=== PATIENT | male | born 1955 | race Caucasian/White ===

== ENCOUNTER 2023-02-10 06:15 | Day surgery (SDC) | payer BC, SELFPAY ==
[2023-02-10] VITALS (17 sets, daily range): BP systolic 111–133; BP diastolic 69–95; PULSE 49–75; RESP 14–16; TEMP 36–36.5; O2SAT 92–97; BMI 28.8
[2023-02-10] MEDS: LACTATED RINGERS 1000 ML 1,000 ML 100 ML IV ×2 (06:45→09:58)
[2023-02-10] MEDS: SODIUM CHLORIDE 0.9 % (FLUSH) 10 ML SYRINGE IVF (06:45)
--- NOTE | 2023-02-10 07:19 | W.PM.H&PU ---
History & Physical Update History & Physical Update H&P Reviewed and patient assessed: No changes noted
[2023-02-10] MEDS: MIDAZOLAM HCL 1 MG/ML inj IVP (07:24)
[2023-02-10] MEDS: fentaNYL 100 MCG/2 ML inj IVP (07:24)
--- NOTE | 2023-02-10 07:27 | SUR.PREOP ---
TIME?OUT:?0723 PT/Alyssia Huber RN/Dr. Steve MDA?VERIFICATION?OF?SURGICAL?SITE right shoulder,?PROCEDURE,?AND?CONSENT OBTAINED?PRIOR?TO?INVASIVE?PROCEDURE.
[2023-02-10] MEDS: CEFAZOLIN 2 GM in 0.9 % SODIUM CHLORIDE Mini-bag 100 ML IVPB (07:52)
--- NOTE | 2023-02-10 08:17 | W.PM.NB ---
Nerve Block Nerve Block Time Seen by Provider: 07:26 Date Seen: 02/10/23 Type of block requested by surgeon for post-operative analgesia: supraclavicular Side: right Time out performed: Yes Verification of patient name: Yes Verification of date of : Yes Site marking: site marked Name of person performing procedure: Steve Continuous monitoring Was continuous monitoring of O2 sat, B/P, alarm security or surveillance monitor, recorded every 15 minutes?: Yes Procedure Checklist: sterile prep, needles and gloves Ultrasound guided. Images saved: Yes Medications given in 5ml increments after negative aspiration: Ropivicaine %: 0.5 mL: 20 Needle gauge: 22 Decadron (mg): 10 Precedex (mcg): 25 Patient tolerated procedure well: Yes Block Charges Block Charge (with Pro Fee): Brachial Plexus Use of Ultrasound Machine for Block: Yes- US Guidance/pain block
--- NOTE | 2023-02-10 08:17 | W.ANESCHARGE ---
Anesthesia Charges Start Date/Time Anesthesia Start Date: 02/10/23 Anesthesia Start Time: 07:48 Stop Date/Time Anesthesia Stop Date: 02/10/23 Anesthesia Stop Time: 10:01
[2023-02-10] MEDS: EPINEPHrine 1 MG in SODIUM CHLORIDE IRRIG SOLUTION 3,000 ML 9003 MG IRRIGATION ×5 (08:18→09:20)
--- NOTE | 2023-02-10 09:38 | PM.ORPRC ---
Procedure Note Date of procedure: 02/10/23 Procedure: PREOPERATIVE DIAGNOSES: 1. Right shoulder rotator cuff [id number] partial-thickness supraspinatus 2. Right shoulder AC degenerative joint disease, primary, moderate-severe 3. Right shoulder subacromial impingement syndrome. POSTOPERATIVE DIAGNOSES: 1. Right shoulder rotator cuff [id number] supraspinatus 2. Right shoulder AC degenerative joint disease, primary, moderate-severe 3. Right shoulder subacromial impingement syndrome. NAME OF OPERATION: 1. Right shoulder arthroscopic rotator cuff repair - full-thickness supraspinatus 2. Right shoulder arthroscopic distal clavicle excision 3. Right shoulder arthroscopic bursectomy, subacromial decompression/partial acromioplasty. SURGEON: John Allen MD SOLAR MECHANICAL ENGINEER: Tal Arias. Of note, a skilled medical assistant per diem was critical for this case to aide in patient positioning, suture manipulation, arm positioning, instrument positioning, and closure. ANESTHESIA: General plus preoperative supraclavicular block. EBL: 25 mL IMPLANTS: Arthrex 5.5 mm BioComposite SwiveLock suture anchor (x2); Arthrex 2.6 mm knotless FiberTak RC (x2) COMPLICATIONS: None evident INDICATIONS: The patient is a pleasant, 67-year-old male who has experienced right shoulder pain that has been increasing in recent time. Physical exam and imaging were consistent with a rotator cuff tear. Given their findings, as well as the weakness and pain, and inadequate response to nonoperative management, recommendation was made for surgery. FINDINGS: Exam under anesthesia revealed stable shoulder with excellent range of motion. The diagnostic arthroscopy revealed healthy chondral surfaces of the glenohumeral joint. The Subscapularis tendon was intact and with a healthy attachment. The long head of the biceps tendon was intact. The superior rotator cuff tendon was found to be torn in a full-thickness manner throughout a majority of the supraspinatus in a complex pattern and a slight/small reverse L-shaped component. The labrum was relatively healthy overall. No loose bodies were identified within the pouch or subscapularis recess. PROCEDURE: Following a thorough discussion of risks, benefits, and alternatives, consent was obtained and the right shoulder was marked. The patient was brought to the operating room and placed supine on the operating table. Induction of anesthesia was completed after preoperative supraclavicular block was administered in preop holding. Appropriate time out was performed identifying proper patient, site, and procedure. 2 g IV Ancef was administered within 1 hour of incision preoperatively. The right upper extremity was prepped and draped in the appropriate sterile fashion using ChloraPrep prep. This was after the patient was positioned in the beach chair with their head in neutral alignment and all bony prominences well padded. The shoulder was insufflated with 20mL of normal saline via an 18g spinal needle from a posterior approach. An 11 blade skin incision allowed a blunt trochar to be inserted and diagnostic arthroscopy to be performed with the findings as noted above. An anterior portal was established with an outside in technique. This allowed the probe to be inserted and confirm the diagnostic arthroscopic findings. The shaver was then inserted and allowed debridement of greater tuberosity humeral head in preparation for the rotator cuff repair Following this, the upper border subscapularis was probed and found to be stable. Thereafter, the subacromial space was entered. Here, a complete bursectomy and partial acromioplasty/subacromial decompression was performed with a combination of radiofrequency ablator, the shaver, and a 5.5 mm bur. Additionally, distal clavicle excision was performed with the bur. 8 mm of distal clavicle was resected based on the with of our bur. Further inspection of the supraspinatus and infraspinatus rotator cuff was performed. This identified the tear as noted above. The margins of the tear were debrided, and the greater tuberosity was debrided with a combination of the apollo cautery, shaver, and bur on reverse setting. After gentle decortication, a speed bridge configuration with a medial pattie was engaged. 2 medial anchors were placed and the sutures were passed with a fiber link. The knotless mechanism suture tails were then retrieved, passed, and cinched down for the medial pattie purpose. A tail from each of the medial row anchor FiberTapes were then brought to a lateral row anchor. The lateral row eyelet sutures were utilized for securing small dog ears. Excellent reapproximation of the tissue to the greater tuberosity was achieved with broad footprint compression. The rotator cuff showed excellent reapproximation of the greater tuberosity with good security upon probing. Prior to anchor refrigerated national truck driver removal, the eyelet sutures were tugged on for each anchor and found that the anchor had excellent stability within the bone. The shoulder was placed through range of motion and found to be stable. The rotator cuff was re-probed and found to be stable. Instruments were removed. Excess fluid was drained, closure performed with 4-0 Monocryl and Steri-Strips. Dressings were applied. Sling was applied. The patient was awoken from anesthesia and transferred to the PACU in stable condition. A skilled medical assistant per diem was critical for this case to aid in patient positioning, limb positioning, skill to manipulate arthroscopic instruments and camera, suture management, patient safety, and closure. PLAN: 1. Elbow, forearm, wrist and digit range of motion as tolerated. 2. Encouraged ice. 3. Oxycodone for pain as needed. 4. Sling at all times except for ROM and showering. 5. Follow up with PA visit in 1-2 weeks for wound check. Initiate physical therapy following that visit for passive range of motion. Initiate active assisted range of motion at 4-6 weeks. May do pendulums now.
--- NOTE | 2023-02-10 10:06 | W.ANESCHARGE ---
Anesthesia Charges Start Date/Time Anesthesia Start Date: 02/10/23 Anesthesia Start Time: 07:48 Stop Date/Time Anesthesia Stop Date: 02/10/23 Anesthesia Stop Time: 10:01
== END 2023-02-10 12:14 | disposition home or self-care (01) ==
PROVIDERS: PCP Internal Medicine; Visit Provider Orthopaedic Surgery Sports Medicine
PROC: (CPT 29805; principal; 2023-02-10 07:45)
DX: M75.101 Unspecified rotator cuff tear or rupture of right shoulder, not specified as traumatic (principal); M19.011 Primary osteoarthritis, right shoulder; M75.41 Impingement syndrome of right shoulder; G89.18 Other acute postprocedural pain
CPT/HCPCS: 29827; 29826; 29824; 01630; 64415; 76942; C1713; J0171; J0330; J0690; J1100; J2250; J2371; J2405; J2704; J2795; J3010; J3490; J7120; L3670

== ENCOUNTER 2024-11-01 06:10 | Day surgery (SDC) | payer MEDICARE, BC, SELFPAY ==
[2024-11-01] VITALS (19 sets, daily range): BP systolic 94–129; BP diastolic 58–89; PULSE 49–66; RESP 10–24; TEMP 36.2–37.1; O2SAT 93–99; BMI 28.6
[2024-11-01] MEDS: LACTATED RINGERS 1000 ML 1,000 ML 100 ML IV ×2 (06:15→10:08)
--- NOTE | 2024-11-01 06:52 | W.PM.H&PU ---
History & Physical Update History & Physical Update H&P Reviewed and patient assessed: No changes noted
[2024-11-01] MEDS: ACETAMINOPHEN 500 MG TABLET 1000 MG PO (06:59)
[2024-11-01] MEDS: OXYCODONE (CR) 10 MG TAB.ER.12H PO (06:59)
[2024-11-01] MEDS: SODIUM CHLORIDE 0.9 % (FLUSH) 10 ML SYRINGE IVF (07:00)
[2024-11-01] MEDS: MIDAZOLAM HCL 1 MG/ML inj IVP (07:10)
--- NOTE | 2024-11-01 07:11 | SUR.PREOP ---
TIME?OUT:?0709 PT/Alyssia Huber, RN/Ayan, MANAGER CIVIL?VERIFICATION?OF?SURGICAL?SITE left knee,?PROCEDURE,?AND?CONSENT OBTAINED?PRIOR?TO?INVASIVE?PROCEDURE.
--- NOTE | 2024-11-01 07:32 | P.NB_ITS ---
Nerve Block Nerve Block Time Seen by Provider: 07:10 Date Seen: 11/01/24 Type of block requested by surgeon for post-operative analgesia: geniculars Side: left Time out performed: Yes Verification of patient name: Yes Verification of date of : Yes Site marking: site marked Name of person performing procedure: Ayan Deleon Continuous monitoring Was continuous monitoring of O2 sat, B/P, cardiac catheterization technologist, recorded every 15 minutes?: Yes Procedure Checklist: sterile prep, needles and gloves Ultrasound guided. Images saved: No Medications given in 5ml increments after negative aspiration: Ropivicaine %: 0.5 mL: 12 Needle gauge: 25 Patient tolerated procedure well: Yes Additional comments: Injected in 4 mL increments after negative aspiration Block Charges Block Charge (with Pro Fee): Genicular Nerve Block Use of Ultrasound Machine for Block: No
--- NOTE | 2024-11-01 07:32 | P.NB_ITS ---
Nerve Block Nerve Block Time Seen by Provider: 07:05 Date Seen: 11/01/24 Type of block requested by surgeon for post-operative analgesia: adductor canal Side: left Time out performed: Yes Verification of patient name: Yes Verification of date of : Yes Site marking: site marked Name of person performing procedure: Ayan Deleon Continuous monitoring Was continuous monitoring of O2 sat, B/P, color television console monitor, recorded every 15 minutes?: Yes Procedure Checklist: sterile prep, needles and gloves Ultrasound guided. Images saved: Yes Medications given in 5ml increments after negative aspiration: Ropivicaine %: 0.5 mL: 30 Needle gauge: 20 Precedex (mcg): 25 Patient tolerated procedure well: Yes Additional comments: Injected in 5mL increments after negative aspiration Block Charges Block Charge (with Pro Fee): Femoral Nerve Use of Ultrasound Machine for Block: Yes- US Guidance/pain block
[2024-11-01] MEDS: TRANEXAMIC ACID 100 MG/ML INJ 1000 MG IV (07:38)
--- NOTE | 2024-11-01 08:44 | P.ORPRC_ITS ---
Procedure Note Date of procedure: 11/01/24 Procedure: PREOPERATIVE DIAGNOSIS: 1. Left knee osteoarthritis, primary, severe POSTOPERATIVE DIAGNOSIS: 1. Left knee osteoarthritis, primary, severe PROCEDURE: 1. Left total knee arthroplasty SURGEON: John Allen MD. CATH LAB RADIOLOGICAL TECHNOLOGIST: MARIO ALBERTO Marin - Of note, a skilled operations manager assistant was critical for this case to aid in patient positioning, tissue retraction, limb manipulation/positioning, and closure. ANESTHESIA: Spinal anesthetic EBL: 50ml IMPLANTS: DePuy J&J uncemented TKA - Attune PS femur size 7 Size 7 tibia 5mm poly spacer 38 mm Affixium patella TOURNIQUET: 45 min at 250 torr COMPLICATIONS: None evident INDICATIONS: The patient is a pleasant 68-year-old male who has experienced severe left knee pain and difficulty bearing weight. Workup included x-rays which revealed severe osteoarthrosis in the knee. Given the deformity, the dysfunction, and the pain, as well as the failure of nonoperative management, recommendation was made for surgery. FINDINGS: Full-thickness chondral loss lateral compartment. To lesser degree patellofemoral and medial compartment chondromalacia. Degenerative meniscus pathology lateral greater than medial. Moderate effusion upon entering the joint. Throughout the knee, the cancellous bone had a brownish coloring to it far more than typical. The bone was also rather dense cutting it. Particularly lateral compartment. There is a subtle fissure across the anterior aspect of the tibial plateau arcing in line with the anterior plateau. Hard to distinguish if this is truly a subtle fracture or patient's anatomy. DESCRIPTION OF PROCEDURE: Following a thorough discussion of risks, benefits, and alternatives consent was obtained and the left knee was marked. The patient was brought to the operating room and placed supine on the operating table. Induction of anesthesia was undertaken. 2 g IV Ancef and 1 g tranexamic acid was administered within 1 hr of incision preoperatively. Proper time-out was performed identifying proper patient, site, procedure. The operative extremity was prepped and draped in the appropriate sterile fashion using ChloraPrep after the patient was positioned supine with all bony prominences well padded. A longitudinal, anterior, midline skin incision was made starting approximately 3cm proximal to the superior pole of the patella and advanced distal to the tibial tubercle. A sub vastus approach was utilized . After mobilizing the patella, retropatellar fatpad was resected and the synovium in the suprapatellar pouch excised to visualize the anterior femoral cortex. Patellar prep showed initial measurement/thickness of 24 mm. It was resected back to approximately 14 mm. The patella prep was completed with drilling and a trial placed. Femoral preparation was performed via an intramedullary guide. Step drill allowed access into the femoral canal. The distal cutting guide was placed with 5? of valgus and 10 mm cut on the distal femur. Femur was sized using a anterior referencing guide in 3? of external rotation. This found have a best fit with the sizing noted above. The 4 in 1 cutting block was then placed, and the distal femur shaped accordingly. The box cut was then created and the trial implant inserted to confirm appropriate fit. We turned our attention to the proximal tibia. Extramedullary guide was utilized for cutting with the goal of being 90 degree cut from the mechanical axis of the tibia in the varus/valgus plane utilizing tibial crest as the primary alignment. Initially a 2 mm resection was performed from the medial t ibial plateau. An additional 2 mm of tibial resection was needed to achieve proper balance in both flexion & extension. Ultimately, balancing was achieved in both flexion and extension in both varus and valgus. The knee was able to achieve full extension comfortably. It was sized to be a best fit with as noted above. At this stage, trial implants were removed, the tibia and femoral and patellar components were opened and inserted. The real poly spacer was opened and inserted. A 3 min Betadine soak performed. Finally, a final irrigation round with normal saline was performed. Closure performed with 0 PDS and #0 Stratafix for the quad tendon/retinaculum. 2-0 Vicryl/Stratafix for the subcutaneous and 4-0 Monocryl for subcuticular closure. Dressings were applied and the patient was awoken from anesthesia after the tourniquet deflated and transferred the PACU in stable condition. A skilled operations manager assistant was critical for this case to aid in patient positioning, tissue retraction, bone exposure, limb manipulation/positioning, patient safety, and closure. PLAN: 1. Weight bear as tolerated operative extremity. 2. 23 hr perioperative antibiotics. 3. Ice. 4. PT/OT consults for ambulation assistance/mobility education. 5. Social work consult for discharge planning. 6. DVT prophylaxis with at SCDs, and aspirin twice daily.
--- NOTE | 2024-11-01 09:21 | P.ANES_ITS ---
Anesthesia Charges Start Date/Time Anesthesia Start Date: 11/01/24 Anesthesia Start Time: 07:21 Stop Date/Time Anesthesia Stop Date: 11/01/24 Anesthesia Stop Time: 09:20 Coding CPT Codes CPT Codes: ANESTH KNEE ARTHROPLASTY - 17705 ([id number]) P2 - PATIENT W/MILD SYST DISEASE, QK - TYPEWRITER REPAIRER 2-4 CNCRNT ANES PROC, QX - METAL MODEL BUILDER SVC W/ MD MED DIRECTION
--- NOTE | 2024-11-01 09:21 | W.ANESCHARGE ---
Anesthesia Charges Start Date/Time Anesthesia Start Date: 11/01/24 Anesthesia Start Time: 07:21 Stop Date/Time Anesthesia Stop Date: 11/01/24 Anesthesia Stop Time: 09:20 Coding CPT Codes CPT Codes: ANESTH KNEE ARTHROPLASTY - 06090 ([id number]) P2 - PATIENT W/MILD SYST DISEASE, QK - WAD BLANKING PRESS ADJUSTER 2-4 CNCRNT ANES PROC, QX - AIRCRAFT STRUCTURAL DESIGN ENGINEER SVC W/ MD MED DIRECTION
--- NOTE | 2024-11-01 09:28 | CRLHL7_ITS ---
For Patients: As a result of the Cures Act, medical imaging exams and procedure reports are released immediately into your electronic medical record. You may view this report before your referring provider. If you have questions, please contact your health care provider. INDICATION: Follow-up a left knee arthroplasty. TECHNIQUE: Two portable postoperative images of the left knee. COMPARISON: Pre-surgical images October 10, 2024. FINDINGS: New left knee arthroplasty with patellar resurfacing. The components are adequately aligned and well seated. Air within the joint space and soft tissues related to the surgery. IMPRESSION: New left total knee arthroplasty. The components are adequately aligned and well seated. Dictated by El Mayer MD @ 11/01/2024 9:52:05 AM (Electronically Signed)
--- NOTE | 2024-11-01 09:53 | SUR.PHASEI ---
patient met discharge criteria per anesthesia
== END 2024-11-01 13:40 | disposition home or self-care (01) ==
LOC: OR 06:11
PROVIDERS: PCP Internal Medicine; Visit Provider Orthopaedic Surgery Sports Medicine
PROC: (CPT 27447; principal; 2024-11-01 07:30)
DX: M17.12 Unilateral primary osteoarthritis, left knee (principal); G89.18 Other acute postprocedural pain
CPT/HCPCS: 27447; 01402; 64447; 64454; 73560; 76942; 97110; 97116; 97161; A9270; C1776; J0690; J1100; J2250; J2371; J2405; J2704; J2795; J3010; J7120

== ENCOUNTER 2024-11-10 09:27 | Outpatient (CLI) | payer MEDICARE, BC, SELFPAY ==
--- NOTE | 2024-11-10 09:15 | CRLHL7_ITS ---
For Patients: As a result of the Century Cures Act, medical imaging exams and procedure reports are released immediately into your electronic medical record. You may view this report before your referring provider. If you have questions, please contact your health care provider. Indication: Pain and swelling status post left TKA 9 days prior Technique: Grayscale, grayscale compression, color Doppler, spectral Doppler and augmentation technique was utilized for evaluating the left lower extremity venous system. The right common femoral vein was also studied Comparison: None Findings: The right common femoral vein is patent. The following structures were studied on the left: Common femoral vein, greater saphenous vein, femoral vein, popliteal vein, peroneal vein and posterior tibial vein. There is thrombosis of both left peroneal veins. The remainder of the left lower extremity venous system is normal in appearance. Discussed directly with Tal Weaver at 10:37 a.m. on 11/10/2020 Impression: Deep venous thrombosis involving the left lower extremity peroneal veins. Dictated by Fredy Marin MD @ 11/10/2024 10:39:25 AM (Electronically Signed)
== END 2024-11-10 09:28 | disposition home or self-care (01) ==
LOC: US 09:29
PROVIDERS: PCP Internal Medicine; Visit Provider Physician Assistant Surgical
DX: M79.662 Pain in left lower leg (principal); I82.452 Acute embolism and thrombosis of left peroneal vein
CPT/HCPCS: 93971

== ENCOUNTER 2024-11-10 10:29 | Emergency (ER) | payer MEDICARE, BC, SELFPAY ==
--- OUTSIDE RECORDS SUMMARY | 2024-11-10 10:32 | XMS_ITS | Clinical Summary ---
Author Organization [employer] [facility] Address [address] [place] [id number] Care Team Providers Care Hi Lift Operator Name Role Phone Slime Oh MD Primary Care Provider [phone] John Allen MD Unavailable [phone] Allergies No known active allergies Medications OCUVITE TAB Take 1 tablet daily 0 7 Active FISH OIL 1,200 MG-144 MG-216 MG CAP Take 1 tablet daily 0 7 Active flunisolide, 25 mcg per actuation, nasal (NASALIDE) 25 mcg (0.025 %) nasal sprayIndications :Routine general medical examination at a health care facility,Nasal congestion Inhale 2 Sprays to both nostrils 2 times daily. 25 mL 2 Active albuterol HFA (PRO-AIR; VENTOLIN; PROVENTIL) 90 mcg/actuation inhalerIndicatio ns:Mild persistent asthma without complication (HC) Inhale 2 Puffs by mouth every 6 hours if needed for Shortness Of Breath. 1 Each 5 4 Active fluticasone propion-salmeter oL (Advair Diskus) 250-50 mcg/Dose diskus inhalerIndicatio ns:Mild persistent asthma without complication (HC) Inhale 1 Puff by mouth two times daily. 60 Each 11 4 Active montelukast (SINGULAIR) 10 mg tabletIndication s:Mild persistent asthma without complication (HC) TAKE ONE TABLET BY MOUTH AT BEDTIME 90 Tablet 3 5 Active MAGNESIUM ORAL Take by mouth. 025 Discontin ued(*Paulina ent states no longer taking) methylPREDNISolo ne (Medrol, [place],) 4 mg tabletIndication s:Chronic right-sided low back pain with right-sided sciatica Take by mouth as instructed per packaging. 21 Tablet 4 025 Discontin ued(*Paulina ent states no longer taking) Active Problems Problem Noted Date Diagnosed Date Rosacea 05/06/2014 Mild persistent asthma 12/01/2011 Lichen planus 08/19/2010 Allergic rhinitis 08/19/2010 Sensorineural hearing loss, bilateral 04/28/2007 Encounters Date Type Department Care Team Description 11/01/2024 Orders Only [facility] Scanner 1 scan: (1-Ord) [facility], LEFT KNEE 2V, 11/01/2024 10/31/2024 [address] [address] Slime Oh MD 1 scan: (1-Ord) 10/30/2024 10/30/2024 12:55 PM CDT Office Visit [address] [place] [address] Slime Oh MD Pre-Op Exam (DOS: 11/01/2024) 10/30/2024 Travel 08/29/2024 10:05 AM CDT Ancillary Procedure [facility] [place] [address] [place] [id number] 08/29/2024 9:45 AM CDT Office Visit [facility] [address] [place] [address] Casey Kent DPM Consult (Right foot pain) 08/29/2024 Travel from Last 3 Months Immunizations Immunization Administration Dates Next Due COVID-19 VACCINE SPIKEVAX (M ODERNA 50MCG/0.5ML) 12YO+ PFS 03/09/2023 COVID-19 vaccine ([employer] NTech 30mcg/0.3mL) 12YO+ BHARATI-SUCROSE PF MDV 08/29/2021 DT (Age < 7 years) 04/05/1983 Hepatitis A (Adult) 03/09/2023,11/11/2012 Hepatitis B (Adult) 04/05/1983 Inactivated Polio Vaccine 03/09/2023 Influenza, IIV4 02/22/2023,02/20/2020,01/03/2015 MMR 03/18/1989 Pneumococcal Conj 20-valent (Prevnar 20) 023 Pneumococcal conj 13-Valent (Prevnar 13) 017 Tdap 01/17/2018,11/15/2007 Typhoid (injectable) 03/09/2023,11/11/2012 Zoster (Shingrix-RZV, recombinant) 12/05/2021, Family History Medical History Relation Name Comments Other Brother 2 Dandy Cancer Brother 3 Carlo T-cell Lymphoma Asthma Brother 4 Bees Heart failure Brother 5 El sudden cardiac Polycystic kidney disease Brother 5 El Sudden Brother 5 El Heart Disease Father Cancer-breast Maternal Aunt Other Maternal Grandfather mag deg Other Maternal Grandmother mac deg Relation Name Status Comments Brother 1 Andres Alive Brother 2 Dandy Alive Brother 3 Carlo Alive Brother 4 Alive Brother 5 El Daughter 1 Alive Daughter 2 Alive Father Maternal Aunt Maternal Grandfather Maternal Grandmother Mother Paternal Grandfather Paternal Grandmother Sister Son Alive Social History Tobacco Use Types Packs/Day Years Used Date Smoking Tobacco: Never Passive Smoke Exposure: Never Smokeless Tobacco: Never Tobacco Cessation:Counseling Given: Yes Alcohol Use Standard Drinks/Week Comments Yes 0 (1 standard drink = 0.6 oz pur e alcohol) occasional PHQ-2 Answer Date Recorded PHQ-2 TOTAL SCORE 0 10/13/2023 Social Connections Answer Date Recorded Do you often feel lonely or isolated from those around you? 0 10/13/2023 Financial Resource Strain Answer Date R ecorded Difficulty of Paying Living Expenses 3 10/13/2023 Difficulty of Paying Living Expenses Not on file 10/13/2023 Food Insecurity Answer Date Recorded Do you worry your food will run out before you are able to buy more? 1 10/13/2023 Transportation Needs Answer Date Record ed Does lack of transportation keep you from medica l appointments? 1 10/13/2023 Does lack of transportation keep you from work, meetings or getting things that you need? 1 10/13/2023 Housing Stability Answer Date Recorded What is your housing situation today? 1 10/13/2023 Utilities Answer Date Recorded Do you have trouble paying f or utilities (for example, heat, electricity, water, phone)? 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 Gender Identity Not on file Sexual Orientation Not on file Occupation Industry Job Start Date Job End Date Not on file Not on file Not on file Not on file Obstetrics History Last Filed Vital Signs Vital Sign Reading Time Taken Comments Blood Pressure 114/76 10/30/2024 12:47 PM CDT Pulse 52 10/30/2024 12:47 PM CDT Temperature 36.6 C (97.9 F) 02/01/2023 3:28 PM CDT Respiratory Rate 16 2017 3:39 PM CDT Oxygen Saturation 96% 08/29/2024 9:42 AM CDT Inhaled Oxygen Concentration - - Weight 85.5 kg (188 lb 6.4 oz) 10/30/2024 12:47 PM CDT Height 174 cm (5' 8.5) 10/30/2024 12:47 PM CDT Body Mass Index 28.23 10/30/2024 12:47 PM CDT Plan of Treatment Health Maintenance Due Date Last Done Comments Hepatitis B series for 19+ ( 2 of 3 - 19+ 3-dose series) 05/03/1983 04/05/1983 RSV vaccine for adults or (1 - Risk 60-74 years 1-dose series) 2017 COVID-19 vaccine series (2023- season) 2023 03/09/2023, 08/29/2021, 02/06/2021, Additional history exists Depression screening for age 12+ 10/12/2024 10/13/2023, 03/04/2020, 03/04/2020, Additional history exists Medicare Wellness for age 65+ 10/13/2024 10/13/2023 Influenza Vaccine (#1) 2024 , 02/20/2020, 01/03/2015 BMI (ht and wt on same day) for age 18+ 10/30/2025 10/30/2024, 10/13/2023, 02/01/2023, Additional history exists Tetanus booster 01/18/2028 01/17/2018, 11/15/2007 Lipids for age 45-75 02/02/2028 02/01/2023, 08/29/2021, 2017, Additional history exists Colonoscopy through age 75 11/24/202811/24, 08/02/2014, 08/02/2014, Additional history exists Hepatitis C screening for ag e 18-79 Completed 04/27/2014 Zoster (shingles) series for age 50+ Completed 12/05/2021, 01/17/2018 Pneumococcal series for age 50+ Completed , 10/12/2016 Procedures Procedure Name Priority Date/Time Associated Diagnosis Comments SCAN-RADIOLOGY REPORT 11/01/2024 12:00 AM CDT CBC W PLT NO DIFF Routine 10/30/2024 2:2 3 PM CDT Mild persistent asthma without complication (HC) BASIC METABOLIC PANEL Routine 10/30/2024 2:23 PM CDT Mild persistent asthma without complication (HC) EKG 12 LEAD Routine 10/30/2024 12:00 AM CDT Mild persistent asthma without complication (HC) XR FOOT 3 VIEWS RIGHT Routine 08/29/2024 10:05 AM CDT Capsulitis of foot, right SCAN-COLONOSCOPY 11/25/2023 1:00 PM CDT LIPID PANEL W REFLEX MEASURED LDL Add On 02/01/2023 4:19 PM CDT Lipid screening ANTI HCV Routine 04/27/2014 10:38 AM MERRY GO ROUND ATTENDANT Need for hepatitis C screening test from Last 3 Months or Most Recently Relevant to Health Maintenance Results * SCAN-RADIOLOGY REPORT (11/01/2024 12:00 AM CDT) Anatomical Region Laterality Modality Other us Scanner OTHER Final Result * CBC W PLT NO DIFF (10/30/2024 2:23 PM CDT) Pathologist [facility] WHITE BLOOD CELL COUNT 8.1 3.8 - 10.8 Thousand/u L [facility] RED BLOOD CELL COUNT 5.04 4.20 - 5.80 Million/uL [facility] HEMOGLOBIN 15.9 13.2 - 17.1 g/dL [facility] HEMATOCRIT 46.2 38.5 - 50.0 % [facility] MCV 91.7 80.0 - 100.0 fL [facility] MCH 31.5 27.0 - 33.0 pg [facility] MCHC 34.4 32.0 - 36.0 g/dL [facility] Comment: For adults, a slight decrease in the calculated MCHC value (in the range of 30 to 32 g/dL) is most likely not clinically significant; however, it should be interpreted with caution in correlation with other red cell parameters and the patient's clinical condition. RDW 13.6 11.0 - 15.0 % [facility] PLATELET COUNT 209 140 - 400 Thousand/u L [facility] MPV 9.7 7.5 - 12.5 fL [facility] Blood BLOOD SPECIMEN / Unknown 10/30/2024 2:23 PM CDT 10/30/2024 2:24 PM CDT Slime Oh MD HEMATOLOGY Final Res ult [facility] [address] [place] [address], [facility] [address] [place] [address] * BASIC METABOLIC PANEL (10/30/2024 2:23 PM CDT) [facility] GLUCOSE 95 65 - 99 mg/dL [facility] Comment: Fasting reference interval UREA NITROGEN (BUN) 11 7 - 25 mg/dL [facility] CREATININE 1.14 0.70 - 1.35 mg/dL [facility] EGFR 71 > OR = 60 mL/min/1. 73m2 [facility] BUN/CREATININE RATIO SEE NOTE: 6 - 22 (calc) [facility] Comment: Not Reported: BUN and Creatinine are within reference range. SODIUM 139 135 - 146 mmol/L [facility] POTASSIUM 4.2 3.5 - 5.3 mmol/L [facility] CHLORIDE 101 98 - 110 mmol/L [facility] CARBON DIOXIDE 29 20 - 32 mmol/L [facility] ELECTROLYTE BALANCE 9 7 - 17 mmol/L (calc) [facility] CALCIUM 9.2 8.6 - 10.3 mg/dL [facility] Blood BLOOD SPECIMEN / Unknown 10/30/2024 2:23 PM CDT 10/30/2024 2:24 PM CDT Slime Oh MD CHEMISTRY Final Res ult [facility] [address] [place] [address], [facility] [address] [place] [address] * EKG 12 LEAD (10/30/2024 12:00 AM CDT) Slime Oh MD EKG ORD Final Res ult * XR FOOT 3 VIEWS RIGHT (08/29/2024 10:05 AM CDT) Anatomical Region Laterality Modality FEET, FOOT R Computed Radiogr aphy 08/29/2024 10:4 4 AM CDT Narrative 08/29/2024 10:44 AM CDT For Patients: As a result of the Century Cures Act, medical imaging exams and procedure reports are released immediately into your electronic medical record. You may view this report before your referring provider. If you have questions, please contact your health care provider. INDICATION: Capsulitis of the right foot. TECHNIQUE: Three views right foot. FINDINGS: Small bunion distal 1st and 5th metatarsal head. Moderate size plantar heel spur. No fracture, dislocation or joint arthropathy. Soft tissues are unremarkable. Dictated by Nadege Tillman MD @ 08/29/2024 10:44:24 AM (Electronically Signed) Procedure Note Boone Tillman MD - 08/29/2024 For Patients: As a result of the Cures Act, medical imagingexams and procedure reports are released immediately into your electronicmedical record. You may view this report before your referring provider.If you have questions, please contact your health care provider. INDICATION: Capsulitis of the right foot. TECHNIQUE: Three views right foot. FINDINGS: Small bunion distal 1st and 5th metatarsal head. Moderate size plantarheel spur. No fracture, dislocation or joint arthropathy. Soft tissues areunremarkable. Dictated by Nadege Tillman MD @ 08/29/2024 10:44:24 AM (Electronically Signed) us Casey Kent DPM GENERAL IMAGING Final Res ult * SCAN-COLONOSCOPY (11/25/2023 1:00 PM CDT) Narrative Procedure Note Luis Yusuf MD - 11/25/2023 12:04 PM CDT [facility] [address] [place] [address], [address], [place] [id number] Patient Name: Andrew Garcia Gender: Male Exam Date: 11/25/2023 Visit Number: [id number] Age: 67 Years Date of : 1955 Attending MD: Patricio Yusuf MD Medical Record#: [id number] Procedure: Colonoscopy Indications: Previous adenomatous polyp(s) Referring MD: Slime Oh MD Primary MD: Slime Oh MD Medications: Admitting Medications: 0.9% Normal Saline at TKO Intra Procedure Medications: Patient received monitored anesthesia care. Complications: No immediate complications Procedure: An examination of the heart and lungs was performed and found to be withinacceptable limits. . The patient was therefore deemed a reasonablecandidate for endoscopy and sedation. The risks and benefits of the procedure were explained to the patient.After obtaining informed consent, the patient received monitoredanesthesia care and I passed the scope without difficulty via the rectum to the ileum. The appendiceal orificeand ic valve were identified. The scope was retroflexed during theexamination The quality of the prep was excellent (Miralax/Gatorade/2tablets Bisacodyl/Magnesium Citrate). This was a complete examination throughout the entire colon. Findings: Polyp location: cecum. Quantity: 2. Size: 4-5 mm. Polyp shape:sessile. Maneuver: polypectomy was performed with a cold snare. Removal: complete. Retrieval: complete. Bleeding: none. Polyp location: transverse colon. Quantity: 3. Size: 4-5 mm. Polypshape: sessile. Maneuver: polypectomy was performed with a cold snare. Removal: complete. Retrieval: complete. Bleeding: none. Impression: Colorectal polyps Preliminary Plan: The patient and their physician will receive a copy of the pathologyreport as well as pathology-based recommendations for future screening orsurveillance. Pathology Results: A: COLON, CECUM, POLYPS: 1. Tubular adenomas (2) 2. Negative for high grade dysplasia 3. Per the colonoscopy report: a. Polyp sizes: 4 mm - 5 mm b. Resection: Complete c. Retrieval: Complete B: COLON, TRANSVERSE, POLYPS: 1. Tubular adenomas (2) and hyperplastic polyp (1) 2. Negative for high grade dysplasia 3. Per the colonoscopy report: a. Polyp sizes: 4 mm - 5 mm b. Resection: Complete c. Retrieval: Complete MICROSCOPIC A: Performed B: Performed Electronically signed by: Marisabel Stewart [place] [address] Orders Instruction(s)/Education: Instruction/Education Timeframe Assessment Colon Cancer Prevention K63.5 Colon Polyps K63.5 Final Plan: Repeat colonoscopy in 3 years. We will attempt to contact you at appropriate intervals via U.S. mail. Wemay not be able to find you or contact you at that time, therefore youshould know that the responsibility for following our recommendation restswith you. If you don't hear from us at the time your procedure is due,please contact our office to schedule an appointment. If your contactinformation should change, please contact our office so that we can updateyour record. _Electronically signed by: Patricio Yusuf MD 11/25/2023 cc: Slime Oh MD cc: Slime Oh MD us Luis Yusuf MD OTHER Final Resu lt * (ABNORMAL) LIPID PANEL W REFLEX MEASURED LDL (02/01/2023 4:19 PM CDT) CHOLESTEROL,TOTAL 222(H) 100 - 199 mg/dL 02/01/2023 8:53 PM [facility] Comment: Cholesterol, Total Reference Ranges Desirable <200 mg/dL Borderline 200-239 mg/dL High >=240 mg/dL TRIGLYCERIDES 281(H) <150 mg/dL 02/01/2023 8:53 PM [facility] HDL CHOLESTEROL 55 >40 mg/dL 8:53 PM [facility] NON-HDL CHOLESTEROL 167(H) <145 mg/dl 02/01/2023 8:53 PM [facility] CHOL/HDL RATIO 4.04 <4.50 02/01/2023 8:53 PM [facility] LDL CHOLESTEROL 111 <=130 mg/dL 02/01/2023 8:53 PM [facility] VLDL CHOLESTEROL 56(H) <=30 mg/dL 02/01/2023 8:53 PM [facility] PROVIDER ORDERED STATUS RANDOM 02/01/2023 8:53 PM [facility] Blood BLOOD SPECIMEN / Unknown Venipuncture / Unknown 02/01/2023 4:19 PM CDT 02/01/2023 4:20 PM CDT us Slime Oh MD CHEMISTRY Final Res ult [facility] [address] [place] [address] * ANTI HCV [41511.2] (04/27/2014 10:38 AM MERRY GO ROUND ATTENDANT) HEPATITIS C ANTIBODY Non-Reacti ve Non-Reacti ve 04/27/2014 7:32 PM MERRY GO ROUND ATTENDANT [facility] Blood specimen (specimen) BLOOD SPECIMEN / Unknown Venipuncture / Unknown 04/27/2014 10:38 AM MERRY GO ROUND ATTENDANT 04/27/2014 10:38 AM MERRY GO ROUND ATTENDANT Narrative [facility] - 04/27/2014 7:32 PM MERRY GO ROUND ATTENDANT Antibodies to HCV not detected; does not exclude the possibility of exposure to HCV. Bill Gooden MD SEND OUTS Final Re sult Performing Organization Address [facility]/ZIP Co de Phone Number [facility] [address] [place] [address], from Last 3 Months or Most Recently Relevant to Health Maintenance Insurance MEDICARE PART A HB ONLY MEDICARE PART B HB ONLY MEDICARE PB ONLY [facility] Care Teams Hi Lift Operator Relationship Specialty Start Date End Date Slime Oh MD [address] [place], [place] [address] [id number] PCP - General Internal Medicine 05/24/19 John Allen MD [address] [place] [address] Surgery - Orthopedics 10/30/24
[2024-11-10 10:33] VITALS: BP 139/81; PULSE 72; RESP 18; TEMP 36.8; O2SAT 97; BMI 27.3
--- NOTE | 2024-11-10 10:50 | ED.GENADULT ---
HPI - General Adult General Chief complaint: Lower Extremity Swelling Stated complaint: blood christina on left leg Time Seen by Provider: 11/10/24 10:37 History of Present Illness HPI narrative: Patient is a 68-year-old gentleman who underwent left total knee arthroplasty 10 days ago. He has been feeling reasonably well but did develop pain and swelling in his left leg. He has had no cough no shortness a breath orthopnea no PND no nausea no vomiting. He has had no bleeding. He has only been taking aspirin for DVT prophylaxis. He comes in today stating that the his ultrasound this morning showing deep venous thrombosis of his left leg. He does in fact have a DVT of his left peroneal veins. Related Data Home Medications ?Medication ?Instructions ?Recorded ?Confirmed cetirizine 10 mg tablet 10 mg PO QHS PRN 12/01/22 11/10/24 montelukast 10 mg tablet 10 mg PO QPM 02/19/23 11/10/24 fluticasone 250 mcg-salmeterol 50 1 ea inhalation BID 10/10/24 11/10/24 mcg/dose blistr powdr for inhalation fluticasone propionate 50 1 spray intranasal QDAY PRN 10/10/24 11/10/24 mcg/actuation nasal spray,suspension (Flonase Allergy Relief) albuterol sulfate 90 mcg/actuation 2 inh inhalation Q6H PRN 10/31/24 11/10/24 aerosol inhaler Previous Rx's ?Medication ?Instructions ?Recorded aspirin 81 mg tablet,delayed 81 mg PO BID #60 tabs 11/01/24 release ondansetron 4 mg disintegrating 4 mg PO Q8H PRN nausea and 11/01/24 tablet vomiting #15 tabs oxycodone 5 mg tablet 5 mg PO Q4-8H PRN pain #40 tabs 11/01/24 sennosides 8.6 mg-docusate sodium 1 tab-cap PO BID #30 tabs 11/01/24 50 mg tablet (Senna-S) Allergies Allergy/AdvReac Type Severity Reaction Status Date / Time No Known Drug Allergies Allergy Verified 11/10/24 10:37 Review of Systems Status of ROS: Reports: 10 or more systems reviewed and unremarkable except as noted in History and below [facility] Medical History Rosacea ?L71.9 - Rosacea, unspecified (ICD-10) Mild persistent asthma ?J45.30 - Mild persistent asthma, uncomplicated (ICD-10) Sensorineural hearing loss, bilateral ?H90.3 - Sensorineural hearing loss, bilateral (ICD-10) Osteoarthritis of right knee ?M17.11 - Unilateral primary osteoarthritis, right knee (ICD-10) Osteoarthritis of left knee ?M17.12 - Unilateral primary osteoarthritis, left knee (ICD-10) Left carpal tunnel syndrome ?G56.02 - Carpal tunnel syndrome, left upper limb (ICD-10) Cervical spondylosis ?M47.812 - Spondylosis without myelopathy or radiculopathy, cervical region (ICD-10) Surgical History History of arthroplasty of left knee (11/01/24) ?Z96.652 - Presence of left artificial knee joint (ICD-10) History of arthroscopy of right shoulder (02/10/23) ?Z98.890 - Other specified postprocedural states (ICD-10) History of nasal septoplasty (03/24/13) ?Z98.890 - Other specified postprocedural states (ICD-10) S/P left knee arthroscopy (01/07/18) ?Z98.890 - Other specified postprocedural states (ICD-10) Social History Smoking Status: Never smoker Do you use any of these nicotine containing products: None Second hand tobacco smoke exposure: No How often do you have a drink containing alcohol: monthly or less Alcohol type: hard liquor How many standard drinks containing alcohol do you have on a typical day: 1 or 2 How often do you have six or more drinks on one occasion: Never AUDIT-C Alcohol total score: 1 Non-prescribed substance use: denies use Caffeine: Yes Exam Narrative: Exam Narrative: EXAM GENERAL: Patient appears comfortable and well. EYES: No scleral icterus. ENT: Tympanic membranes and oropharynx normal. THYROID: no thyroid nodules or thyromegaly. LYMPH: No supraclavicular or cervical lymphadenopathy. SKIN: Visible skin seen during exam normal or with benign process only. EXT: No dependent lower extremity pedal edema. HEART: Regular rate and rhythm with no murmurs, rubs, or gallops. LUNGS: Clear to auscultation bilaterally with no crackles or wheezes. ABD: Soft, non tender, non distended. PSYCH: Good eye contact, speech is not pressured. Swelling noted left lower extremity most prominently in the calf and medial thigh. Attack arthroplasty incision. Const: Vital Signs, click to edit/add: Vital Signs - 24 hr 11/10/24 10:33 Temperature 98.3 F Pulse Rate [Right Pulse Oximeter] 72 Respiratory Rate 18 Blood Pressure [Ri ght Upper Arm] 139/81 Pulse Oximetry 97 Oxygen Delivery Me thod Room Air Course Course ED Course: Patient seen examined. Ultrasound reviewed. Start the patient on Eliquis starter with continuation with 3 months. Patient will follow-up with his primary physician in the next week or 2 to continue his therapy. Otherwise symptomatic care continue routine postoperative care. Vital Signs Vital signs: Initial Vital Signs Temperature 98.3 F 11/10/24 10:33 Temperature Source Temporal Artery Scan 11/10/24 10:33 Pulse Rate 72 11/10/24 10:33 Pulse Rhythm Regular 11/10/24 10:33 Pulse Strength 3+ Normal 11/10/24 10:33 Respiratory Rate 18 11/10/24 10:33 Blood Pressure 139/81 11/10/24 10:33 Blood Pressure Mean 100 11/10/24 10:33 Blood Pressure Position Sitting 11/10/24 10:33 Pulse Oximetry 97 11/10/24 10:33 Oxygen Delivery Method Room Air 11/10/24 10:33 Vital Signs Temperature 98.3 F 11/10/24 10:33 Pulse Rate 72 11/10/24 10:33 Respiratory Rate 18 11/10/24 10:33 Blood Pressure 139/81 11/10/24 10:33 Pulse Oximetry 97 11/10/24 10:33 Oxygen Delivery Method Room Air 11/10/24 10:33 Temperature 98.3 F 11/10/24 10:33 Pulse Rate 72 11/10/24 10:33 Respiratory Rate 18 11/10/24 10:33 Blood Pressure 139/81 11/10/24 10:33 Pulse Oximetry 97 11/10/24 10:33 Oxygen Delivery Method Room Air 11/10/24 10:33 Discharge Plan Discharge Clinical Impression: DVT (deep venous thrombosis) Patient Disposition: Home, Self-Care Condition: Stable Instructions: Deep Vein Thrombosis (ED) Additional Instructions: Bret maldonado directed Continue symptomatic care postoperative care Follow-up with your doctor as discussed. Activity Level: No Restrictions Discharge Diet: Regular Prescriptions: No Action montelukast 10 mg tablet 10 mg PO QPM cetirizine 10 mg tablet 10 mg PO QHS PRN fluticasone propion-salmeterol 250-50 mcg/dose blister with device 1 ea inhalation BID fluticasone propionate [Flonase Allergy Relief] 50 mcg/actuation spray,suspension 1 spray intranasal QDAY PRN Rx Instructions: administer into each nostril albuterol sulfate 90 mcg/actuation HFA aerosol inhaler 2 inh inhalation Q6H PRN sennosides-docusate sodium [Senna-S] 8.6-50 mg tablet 1 tab-cap PO BID Qty: 30 1RF Rx Instructions: Take while using narcotics. If loose stools, then stop this medication. aspirin 81 mg tablet,delayed release (DR/EC) 81 mg PO BID Qty: 60 0RF Rx Instructions: Take until gone for DVT prophylaxis ondansetron 4 mg tablet,disintegrating 4 mg PO Q8H PRN (Reason: nausea and vomiting) Qty: 15 1RF oxycodone 5 mg tablet 5 mg PO Q4-8H PRN (Reason: pain) Qty: 40 0RF Follow Up/Referrals: Slime Oh MD [Primary Care Provider, Internal Medicine] Stand Alone Forms: SignalSet Info Instructions
== END 2024-11-10 11:16 | disposition home or self-care (01) ==
LOC: ED 11:05
PROVIDERS: Emergency Provider Internal Medicine; PCP Internal Medicine
DX: I82.402 Acute embolism and thrombosis of unspecified deep veins of left lower extremity (principal)
CPT/HCPCS: 93971; 99283; 99284